=== PATIENT | male | born 1975 | race Caucasian/White ===

== ENCOUNTER → 2020-08-19 | Outpatient (CLI) | payer OTHER ==
--- NOTE | 2020-08-19 13:45 | RAD ---
EXAM: Bilateral knees, standing view; left knee, 2 views. HISTORY: Pain. COMPARISON: None. FINDINGS: A standing view both knees and 2 views of the left knee are obtained. There is severe media l compartment joint space narrowing with subchondral sclerosis and spurring. There is mild bilateral lateral compartment and left patellofemoral compartment spurring. There is bilateral genu varus. Ther e is a small to moderate left knee effusion. IMPRESSION: 1. Severe bilateral medial and mild bilateral lateral and left patellofemoral compartment osteoarthri tis. 2. Mild bilateral genu varus. 3. Small to moderate left knee effusion. Electronically signed by: Ratna Kenny MD (08/19/2020 1:43 PM) [id number]
== END ==
LOC: RAD 13:19
PROVIDERS: ATTEND Physician Assistant
DX: M17.0 Bilateral primary osteoarthritis of knee (principal); M21.162 Varus deformity, not elsewhere classified, left knee; M21.161 Varus deformity, not elsewhere classified, right knee; M25.462 Effusion, left knee
CPT/HCPCS: 73560; 73565